=== PATIENT | female | born 1995 | race Caucasian/White ===

== ENCOUNTER 2019-02-10 05:00 | Day surgery (SDC) | payer OTHER ==
[2019-02-10 07:51] VITALS: BMI 31.4
[2019-02-10] MEDS ORDERED: BUPIVACAINE HCL/PF 0.5% (5 MG/ML) 30 ML VIAL IJ ONE (10:11)
[2019-02-10] MEDS ORDERED: fentaNYL CITRATE 250 MCG/5 ML VIAL ONE (10:40)
[2019-02-10] MEDS ORDERED: LIDOCAINE HCL/PF 2% SDV 5ML VIAL ONE (10:40)
[2019-02-10] MEDS ORDERED: ROCURONIUM BROMIDE 50 MG/5 ML SYRINGE ONE ×2 (10:40→10:41)
[2019-02-10] MEDS ORDERED: MIDAZOLAM HCL 2 MG/2 ML SINGLE DOSE VIAL ONE (10:41)
[2019-02-10] MEDS ORDERED: PROPOFOL 20 ML ONE ×2 (10:41)
[2019-02-10] MEDS ORDERED: IBUPROFEN 800 MG/8 ML IJ IVPB PRN (10:51)
[2019-02-10] MEDS ORDERED: oxyCODONE HCL 5 MG TABLET PO PRN (10:51)
[2019-02-10] MEDS ORDERED: ONDANSETRON 4 MG/2 ML VIAL IVPUSH PRN (10:51)
[2019-02-10] MEDS ORDERED: LACTATED RINGERS SOLUTION 1,000 ML IV SCH (11:00)
[2019-02-10] MEDS ORDERED: DEXAMETHASONE SOD PHOSPHATE 4 MG/1 ML VIAL ONE (11:21)
[2019-02-10] MEDS ORDERED: ceFAZolin SODIUM 1 GM VIAL ONE (11:26)
[2019-02-10] MEDS ORDERED: ceFAZolin SODIUM 1 GM VIAL IVPB ONE (11:28)
[2019-02-10] MEDS ORDERED: NEOSTIGMINE METHYLSULFATE 0.5 MG/ML - 10 ML MDV ONE (12:13)
[2019-02-10] MEDS ORDERED: GLYCOPYRROLATE 0.2 MG/1 ML VIAL ONE (12:13)
[2019-02-10 15:38] VITALS: TEMP 97.9
[2019-02-10] MEDS ORDERED: oxyCODONE HCL 5 MG TABLET ONE ×2 (15:57→16:38)
[2019-02-10] MEDS ORDERED: oxyCODONE HCL 5 MG TABLET PO ONE (16:32)
[2019-02-10] MEDS ORDERED: ACETAMINOPHEN 500 MG TABLET (FP) PO ONE (16:33)
[2019-02-10 18:05] VITALS: BP 112/65; PULSE 88
--- NOTE | 2019-02-12 17:25 | PATH ---
Surgical Pathology Report Patient Name: GIANNI GLYNN [facility]. Rec. #: [id number] /Age/Gender: 1995 (Age: 23) / F Account: [id number] Location: AMBULATORY SURG Taken: 02/10/2019 Received: 02/11/2019 Reported: 02/12/2019 Physicians: Mari Finch M.D. Specimen(s) Received RIGHT DERMOID Clinical History Ovarian cyst Final Diagnosis DERMOID CYST, RIGHT, ROBOTIC LAPAROSCOPIC OVARIAN CYSTECTOMY: MATURE CYSTIC TERATOMA. Electronically Signed Nicolle Pritchard M.D. Gross Description Received in formalin labeled "right dermoid cyst," is a 7.0 x 5.0 x 2.8 cm disrupted cyst. The outer surface is corral-duran and smooth. The lumen contains abundant sebaceous material, fat and hair. No normal ovarian parenchyma is identified. Mixer Wet Pour sections are submitted in 7 cassettes. DL/02/11/2019 saudi/02/11/2019
--- NOTE | 2019-02-17 07:32 | HP ---
History & Physical Update - History History: No Change - Physical Physical: No Change - Assessment Assessment: No Change - Plan Plan: No Change (No change in HP)
--- NOTE | 2019-02-17 07:33 | OP ---
Operative Note - Note: Operative Date: 02/10/19 Pre-Operative Diagnosis: right dermoid cyst Operation: Laparoscopic robotic cystectomy right Post-Operative Diagnosis: Same as Pre-op Surgeon: Mari Finch Aeronautical Research Engineer: Mague Navarro Anesthesia: General Operative Report Dictated: Yes
--- NOTE | 2019-02-17 11:15 | OP ---
DATE OF OPERATION: 02/10/2019 PREOPERATIVE DIAGNOSIS: Right ovarian cyst. OPERATION: Laparoscopic robotic right ovarian cystectomy. POSTOPERATIVE DIAGNOSIS: Right ovarian dermoid cyst. SURGEON: Mari Finch MD RECREATION CLERK: ANA Meadows ANESTHESIOLOGIST: Carol Cat MD ANESTHESIA: General. ESTIMATED BLOOD LOSS: Approximately 20 mL. PROCEDURE: Patient was taken to the operating room, placed in dorsal lithotomy position. Prepped and draped in the usual sterile fashion. Time-out was performed in accordance with hospital regulation. Mcgrath catheter was inserted into the bladder. Attention was then drawn to the abdomen where an 8-mm umbilical incision was made. Veress needle was inserted into the cavity. Approximately 2-4 L of CO2 was insufflated in the cavity. Veress needle was then removed, and an 8-mm trocar was then inserted. Two other trocars were inserted on the left side 10 mm apart from the umbilical incision. Scalpel was then used to make an 8 mm incision and trocar was inserted under direct visualization with the laparoscope and camera attached. Upper abdomen incision was made, 11-mm incision was made, and the AirSeal cannula was inserted under direct visualization. Two other trocars were inserted on the right side 10 mm apart under direct visualization after scalpel was then used to make 8-mm umbilical incision. Trocars were inserted and placed correctly. The da Fred robot was then side docked to the patient's bedside. Trocars were then inserted. Attention was then drawn to the console where control of the console was done. Instruments had been placed. A [place] was placed on the left. Endo Uziel and fenestrated bipolar was inserted on the right. Visualization revealed a normal left ovary. Right ovary noted to be about 12 cm in size with a 10 cm dermoid. Endo Uziel were then used to make an incision in the capsule. Cyst wall was identified, and blunt and sharp technique was then used to remove the dermoid cyst from the right ovary. Hair and teeth were seen in the cyst. Coagulation of the ovary was then done. Hemostasis was achieved. The left ovary was noted to be normal. Tubes were noted to be normal. Uterus normal. After cyst had been removed from the right ovary, attention was then drawn to the AirSeal cannula incision where the EndoCatch was inserted and the dermoid cyst was placed in the EndoCatch and then the cyst was then removed from the incision. Joe-Adalid device was then used to close the fascia, and skin was closed using 4-0 Biosyn suture in a subcuticular fashion. All incisions were then closed using 4-0 Biosyn suture. Marcaine was then infiltrated. Hemostasis was achieved. Patient had tolerated procedure well after all CO2 had been removed. Kirill [id number]
--- NOTE | 2019-02-17 12:33 | SURG ---
Surgery Collateral Clerk Note Collateral Clerk: Mague Navarro PA-C (Suzy) Date of Service: 02/10/19 Diagnosis: right dermoid cyst Procedure: Operation: Laparoscopic robotic cystectomy right I was present for the entirety of the operative procedure. For further detail, please refer to operative report. Visit type - Case Type Case Type: Scheduled - Emergency Emergency Visit: No - New patient This patient is new to me today: Yes Date on this admission: 02/17/19 - Critical Care Critical Care patient: No
== END 2019-02-10 18:00 | disposition home or self-care (01) ==
LOC: JASUSAT 05:00
PROVIDERS: ATTEND Obstetrics & Gynecology
PROC: 0UB04ZZ Excision of Right Ovary, Percutaneous Endoscopic Approach (ICD-10-PCS; principal; 2019-02-10 09:00)
DX: D27.0 Benign neoplasm of right ovary (principal)
CPT/HCPCS: 36415; 84460; 84703; 86803; 86900; 87340; 87389; 88307-TC; 94760